=== PATIENT | male | born 1950 | race Caucasian/White ===

== ENCOUNTER 2017-07-29 10:04 | Emergency (ER) | payer MEDICARE ==
--- NOTE | 2017-07-29 10:07 | ED.REPORT ---
HPI-Extremity Problem Upper Date of Service Jul 29, 2017 ED Provider: Kranthi Wyman Patient is a 67 year old male who presents to the ED s/p accidentally cutting the fingers of his R hand with a filler and trimmer while gardening at home just prior to arrival. He reports the simba was idling at the time of injury. He denies numbness, tingling, fever, lightheadedness, or any other symptoms. He has had a tetanus shot within the last 5 yrs. Nursing Notes Stated Complaint: RIGHT HAND CUT/TWO FINGERS Nursing Notes Reviewed: Yes Allergies: Coded Allergies: Iodine (Verified Allergy, Unknown, due to shellfish allergie, 09/17/09) Shellfish (Verified Allergy, Unknown, CLAMS, 09/17/09) General Time Seen by MD: 10:06 Chief Complaint Hand injury right Hx Obtained From: Patient Arrived By: Walk-in Onset Occurred: Just prior to arrival Caused by: Accidental Context: Occurred at: Home injury Location: : Finger right 4: Finger right 5: Hand right Quality: Painful Pertinent Negative: Pt denies other symptoms Immunizations: Tetanus up to date Recent Healthcare: No recent doctor visit Past Medical History Past Medical History Hep C anxiety Past Surgical History None reported Smoking History Unknown if Ever Smoker Social History Alcohol Use: "Social" Ambulatory Status Independent Review of Systems Musculoskeletal: Reports: Extremity pain (R hand ) Neurologic: Denies: Lightheaded, Numbness (or tingling ), Weakness Complete sys rev & neg: except as marked. Hematologic: Reports Bleeding Physical Exam Initial Vital Signs Vital Signs (First) Date Time Temp Pulse Resp B/P Pulse Ox O2 Delivery O2 Flow Rate FiO2 07/29/17 10:08 75 16 152/92 97 Room Air 07/29/17 10:28 36.6 Initial VS: Reviewed, Vital signs abnormal Head / Eyes: Atraumatic, Normocephalic Neck: Supple, Full range of motion Respiratory: No respiratory distress Cardiovascular: Intact distal pulses Skin: Warm, Dry Neurologic: Alert, Oriented, Nonfocal Psychiatric: Mood/affect normal, Behavior normal, Normal thought content General/Constitutional: Awake, Alert Upper Extremity / MS: Neurologic intact, Vascular intact Wrist / Hand: Neurologic intact, Vascular intact 2 cm superficial curvilinear laceration of distal 4th finger of R hand. No tendon or bone involvement 2 cm laceration to distal index finger also superficial no bone or tendon involvement 1cm laceration to the distal R 5th finger, superficial and subacute Interpretation & Diagnostics X-Ray Interpretation Xray Interpretation: IMPRESSION: 1. No acute fracture of the right hand. 2. No radiopaque foreign bodies. 3. Mild degenerative changes of the right hand. Dictated by: Segundo Escalante M.D. on 07/29/2017 at 9:44 Approved by: Segundo Escalante M.D. on 07/29/2017 at 9:45 Study Performed: 3 vw X-Ray Ordered: Hand right Interpretation / Wet Read by: Interpret - Radiologist Procedures Laceration Management Time: 11:22 Procedure Performed by: ED physician Consent / Setup / Site Prep: Informed consent provided, Consent from patient , Time-out performed, Hand hygiene observed Location of Wound: 2 cm superficial curvilinear laceration of distal 4th finger of R hand. No tendon or bone involvement 2 cm laceration to distal index finger also superficial no bone or tendon involvement 1cm laceration to the distal R 5th finger, superficial and subacute Wound Length: 2 cm Wound Preparation: Normal saline Repair Skin: Dermabond Post-Procedure / Complications: Dressing applied, No complications, Condition improved, Tolerated procedure well, Patient stable Re-Eval/Medical Decision Med Decision/Clinical Course 67-year-old male presenting with multiple lacerations to his right hand with a filler and trimmer. They are all superficial. He is neurovascularly intact. There is no evidence of bone muscle or tendon involvement. No evidence of fracture or foreign body on x-ray. They are irrigated with copious normal saline. Per patient request, were repaired with Dermabond. Dermabond care counseling provided. Return precautions are some symptoms of infection other new or worsening symptoms. Re-Evaluation/Progress : Time of Eval: 11:23 Re-Evaluation/Progress Note: Discussed plan for discharge. Patient understands and agrees with plan. All questions addressed at this time. Counseled Regarding: Diagnosis, Lab results, Need for follow-up, When/why to return to ED Discharge & Departure Impression: Primary Impression: Laceration Disposition: Home Discharge Condition All VS Reviewed: Yes Condition: Stable Patient Instructions: Finger Laceration (ED) Additional Instructions: Thank you for entrusting us with your care. We used Dermabond to glue your lacerations shut. This may fall off in the next day or two. Keep the areas clean and dry. Follow up with your primary doctor within the next few days. Return to the emergency department if you experience redness, swelling, pus, fevers, chills, numbness, tingling, or any other new or concerning symptoms. Referrals: Arturo Sheth MD (PCP) Scribe Attestation Portions of this note were transcribed by Hank Basurto. I, Dr. Wyman personally performed the history, physical exam and medical decision-making; I reviewed and confirmed the accuracy of the information in the transcribed note. Signed by: Delbert Brennan, 07/29/17 copies to: Arturo Sheth MD, Ben M MD Jul 29, 2017 10:07 HANK BASURTO Jul 29, 2017 10:14
[2017-07-29 10:08] VITALS: BP 152/92; PULSE 75; RESP 16; O2SAT 97
[2017-07-29] MEDS ORDERED: Tissue Adhesive Liq (CS Supplied) TOPICAL ONE (10:15)
--- NOTE | 2017-07-29 10:47 | DRSVH ---
PROCEDURE: X-RAY RIGHT HAND, MINIMUM THREE VIEWS ([id number]) INDICATIONS: trauma laceration r/o fb/fx TECHNIQUE: 3 views of the hand(s) acquired. COMPARISON: None. FINDINGS: Bones: No fractures or dislocations. Carpal bones are normally aligned. No suspicious bony lesions . Mild degenerative changes involving the interphalangeal joints and metacarpal phalangeal joints of the right hand are present. The bone mineralization appears to be within normal limits. Soft tissues: No suspicious soft tissue calcifications. No radiopaque foreign bodies are evident. IMPRESSION: 1. No acute fracture of the right hand. 2. No radiopaque foreign bodies. 3. Mild degenerative changes of the right hand. Dictated by: Segundo Escalante M.D. on 07/29/2017 at 9:44 Approved by: Segundo Escalante M.D. on 07/29/2017 at 9:45
== END 2017-07-29 11:40 | disposition home or self-care (01) ==
LOC: SED 10:04
DX: S61.210A Laceration without foreign body of right index finger without damage to nail, initial encounter (principal); S61.214A Laceration without foreign body of right ring finger without damage to nail, initial encounter; S61.216A Laceration without foreign body of right little finger without damage to nail, initial encounter; W29.3XXA Contact with powered garden and outdoor hand tools and machinery, initial encounter; Y93.H2 Activity, gardening and landscaping; Y92.009 Unspecified place in unspecified non-institutional (private) residence as the place of occurrence of the external cause; Y99.8 Other external cause status; F41.9 Anxiety disorder, unspecified; Z88.8 Allergy status to other drugs, medicaments and biological substances; Z91.013 Allergy to seafood